=== PATIENT | female | born 1980 | race Caucasian/White ===

== ENCOUNTER → 2024-04-01 09:17 | Outpatient (CLI) | payer OTHER, SELFPAY ==
--- NOTE | 2024-04-01 09:22 | DI.MRI.S_ITS ---
PROCEDURE: MR KNEE RT WO CON INDICATIONS: DERANGEMENT OF RT KNEE/RULE OUT MENISCAL TEAR TECHNIQUE: Noncontrast sagittal PD fast spin echo and T2 fast spin echo with fat saturation, sagittal 3-D FLASH with fat saturation; coronal T1 spin echo and PD fast spin echo with fat saturation, and axial PD fast spin echo with fat saturation through the knee. COMPARISON: [facility] [place], CR, XR KNEE 4+ VIEWS RIGHT, 03/30/2024, 10:10. FINDINGS: Image quality: Excellent. Menisci: Subtle fraying of posterior horn The meniscal root ligaments appear intact. Cruciate ligaments: The anterior and posterior cruciate ligaments appear intact. Medial structures: The medial collateral ligament appears thickened near its femoral insertion with mild surrounding soft tissue edema. Visualized portions of the pes anserinus tendons appear normal. No abnormal bursal fluid. Lateral structures: Low-grade partial-thickness tear involving proximal lateral collateral ligament at its femoral insertion is seen. The long and short heads of the biceps femoris tendon appear intact. The popliteus tendon appears normal. Iliotibial band appears normal. Anterior structures: The quadriceps and patellar tendons appear intact. Patellar alignment is normal. No edema in the infrapatellar fat pad. Bones and cartilage: No bone marrow contusions or fractures. 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 Low-grade chondromalacia is also noted involving medial facet of patella cartilage. Joint space: There is small knee joint fluid. No Melendez's cyst. Normal appearing synovial plicae are incidentally noted. IMPRESSION: 1. 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 Low-grade chondromalacia involving medial facet of patella cartilage. No marrow edema. No fracture or dislocation. Small joint effusion, no loose bodies. 2. Low-grade MCL sprain. Low-grade partial-thickness tear involving proximal LCL at its femoral insertion. 3. No evidence of focal meniscal tear. 4. The cruciate ligaments are intact. Dictated by: Froylan Silva M.D. on 04/03/2024 at 15:33 Approved by: Froylan Silva M.D. on 04/03/2024 at 15:47
== END ==
PROVIDERS: Referring Provider Physician Assistant Medical; Visit Provider Physician Assistant Medical
DX: M23.91 Unspecified internal derangement of right knee (principal); S83.411A Sprain of medial collateral ligament of right knee, initial encounter; S83.421A Sprain of lateral collateral ligament of right knee, initial encounter; M22.41 Chondromalacia patellae, right knee; M25.461 Effusion, right knee
CPT/HCPCS: 73721